=== PATIENT | female | born 1945 | race Caucasian/White ===

== ENCOUNTER → 2016-09-28 | Outpatient (CLI) | payer OTHER | LOC: FIMAGING 09:31 | PROVIDERS: ATTEND Internal Medicine | DX: E04.2 Nontoxic multinodular goiter (principal) ==

== ENCOUNTER → 2017-09-28 | Outpatient (CLI) | payer OTHER | LOC: BMCIMAGING 13:34 | PROVIDERS: ATTEND Internal Medicine | DX: E04.1 Nontoxic single thyroid nodule (principal); G24.3 Spasmodic torticollis; Z79.899 Other long term (current) drug therapy | CPT/HCPCS: 76536-PO ==

== ENCOUNTER → 2017-10-19 | Outpatient (CLI) | payer OTHER | LOC: FIMAGING 15:11 | PROVIDERS: ATTEND Internal Medicine | DX: I67.82 Cerebral ischemia (principal); I49.9 Cardiac arrhythmia, unspecified ==